=== PATIENT | male | born 1980 | race Caucasian/White ===

== ENCOUNTER 2018-07-16 00:45 | Emergency (ER) | payer OTHER ==
[~2018-07-16] VITALS: Ht 198.1 cm; Wt 99.8 kg
--- OUTSIDE RECORDS SUMMARY | ~2018-07-16 | XMS | Clinical Summary ---
Demographics + + + | Address | [address] | | | [place] [address] | + + + | Home Phone | | + + + | Preferred Language | Unknown | + + + | Marital Status | Single | + + + | Mormonism Affiliation | Unknown | + + + | Race | White | + + + | Ethnic Group | Not or | + + + Author + + + | Author | [facility] | + + + | Organization | [facility] | + + + | Address | Unknown | + + + | Phone | Unavailable | + + + Support + + +---------+ + | Name | Relationship | Address | Phone | + + +---------+ + | SCAR SPAULDING | ECON | Unknown | | + + +---------+ + Care Team Providers + +------+ + | Care Energy Engineer Name | Role | Phone | + +------+ + | Diana Rush MD | PP | | + +------+ + Source Comments LEO is fully live on both [facility] and [facility]Patient.[facility] Allergies No Known Allergies Current Medications + + +--------+---------+------+------+-------+ | Prescription | Sig. | Disp. | Refills | Star | End | Statu | | | | | | t | Date | s | | | | | | Date | | | + + +--------+---------+------+------+-------+ | butenafine 1 % | Apply to affected | 30 g | 0 | 08/1 | 08/3 | Expir | | topical | area two times daily | | | 6/20 | 0/20 | ed | | creamIndications: | for 14 days. | | | 18 | 18 | | | fungal infection of | Indications: fungal | | | | | | | skin | infection | | | | | | + + +--------+---------+------+------+-------+ Active Problems + + + | Problem | Noted Date | + + + | Sprain of lumbar region | 10/31/2008 | + + + Encounters +--------+ + + + + | Date | Type | Specialty | Care Team | Description | +--------+ + + + + | 06/16/ | Office | | Diaan Rush MD | Well adult on | | 2018 | Visit | | | routine health check | | | | | | (Primary Dx); Tinea | | | | | | corporis; Family | | | | | | history of | | | | | | hyperlipidemia | +--------+ + + + + | 06/16/ | MyChart | | Diana Rush MD | RE: Therapy reccs | | 2017 | Encounter | | | | +--------+ + + + + | 06/16/ | MyChart | | Diana Rush MD | Question regarding | | 2017 | Encounter | | | LIPID SET | +--------+ + + + + from Last 3 Months Immunizations +------+ + + | Name | Dates Previously Given | Next Due | +------+ + + | Tdap | 04/01/2010 | | +------+ + + Family History + + +------+ + | Medical History | Relation | Name | Comments | + + +------+ + | Additional Family | Father | | Sleep Apnea | | History | | | | + + +------+ + | Heart Disease | Father | | Mitral valve prolapse | + + +------+ + | Diabetes | Paternal | | | | | Grandfath | | | | | er | | | + + +------+ + | Stroke | Paternal | | | | | Grandmoth | | | | | er | | | + + +------+ + + +------+--------+ + | Relation | Name | Status | Comments | + +------+--------+ + | Father | | Alive | | + +------+--------+ + | Mother | | Alive | | + +------+--------+ + | Paternal Grandfather | | | | + +------+--------+ + | Paternal Grandmother | | | | + +------+--------+ + Social History + +-------+ +--------+------+ | Tobacco Use | Types | Packs/Day | Years | Date | | | | | Used | | + +-------+ +--------+------+ | Never Smoker | | | | | + +-------+ +--------+------+ + + +---------+ + | Alcohol Use | Drinks/We | oz/Week | Comments | | | ek | | | + + +---------+ + | Yes | 8 | 4.8 | | | | Standard | | | | | drinks or | | | | | | | | | | equivalen | | | | | t | | | + + +---------+ + + + + | Sex Assigned at | Date Recorded | | | | + + + | Not on file | | + + + Last Filed Vital Signs + + + + | Vital Sign | Reading | Time Taken | + + + + | Blood Pressure | 132/78 | 06/16/2018 8:14 AM PDT | + + + + | Pulse | 72 | 06/16/2018 8:14 AM PDT | + + + + | Temperature | 36.2 C (97.2 F) | 06/10/2017 9:30 AM PDT | + + + + | Respiratory Rate | - | - | + + + + | Oxygen Saturation | - | - | + + + + | Inhaled Oxygen | - | - | | Concentration | | | + + + + | Weight | 102.5 kg (226 lb) | 06/16/2018 8:14 AM PDT | + + + + | Height | 198.1 cm (6' 6") | 06/16/2018 8:14 AM PDT | + + + + | Body Mass Index | 26.12 | 06/16/2018 8:14 AM PDT | + + + + Plan of Treatment + + + + + | Health Maintenance | Due Date | Last Done | Comments | + + + + + | INFLUENZA VACCINE | | | | | (FLU SHOT) | 8 | | | + + + + + | SUBSTANCE ABUSE | | 06/16/2018, 06/02/2016 | | | SCREENING | 9 | | | + + + + + | Diphtheria,Tetanus,P | | 04/01/2010 | | | ertussis | 0 | | | | (DTaP/Tdap/Td) (2 - | | | | | Td) | | | | + + + + + | CHOLESTEROL | | 06/16/2018, 06/10/2017, | | | SCREENING | 3 | 06/02/2016, Additional history | | | | | exists | | + + + + + | HIV SCREEN | Completed | 06/10/2017, 05/12/2012 | | + + + + + Procedures + +--------+ + + + | Procedure Name | Priori | Date/Time | Associated Diagnosis | Comments | | | ty | | | | + +--------+ + + + | LIPID SET (TRIG, T | Routin | 06/16/2018 | Family history of | Results for this | | CHOL, HDL, CALC LDL) | e | 8:46 AM | hyperlipidemia | procedure are in the | | | | PDT | | results section. | + +--------+ + + + from Last 3 Months Results LIPID SET (TRIG, T CHOL, HDL, CALC LDL) (06/16/2018 8:46 AM) + +---------+ + + | Component | Value | Ref Range | Performed At | + +---------+ + + | CHOLESTEROL (LAB) | 194 | <200 mg/dL | [facility] | | | | | SERVICES, CORE | + +---------+ + + | TRIGLYCERIDES | 93 | <150 mg/dL | [facility] | | | | | SERVICES, CORE | + +---------+ + + | HDL CHOLESTEROL | 64 | >40 mg/dL | [facility] | | | | | SERVICES, CORE | + +---------+ + + | HDL CMNT | No Hemo | | [facility] | | | | | SERVICES, CORE | + +---------+ + + | LDL CHOLESTEROL, | 111 (H) | <100 mg/dL | [facility] | | CALCULATED | | | SERVICES, CORE | + +---------+ + + | VLDL CHOLESTEROL, | 19 | <31 mg/dL | [facility] | | CALCULATED | | | SERVICES, CORE | + +---------+ + + | NON-HDL CHOLESTEROL | 130 (H) | <130 mg/dL | [facility] | | | | | SERVICES, CORE | + +---------+ + + + + | Specimen | + + | Blood - Blood | + + + + + | Narrative | Performed At | + + + | Cholesterol Reference Range: Desirable: <200 | [facility] | | mg/dL Borderline High: 200 - 239 mg/dL | LAB[facility]ORY | | High: >=240 mg/dL | SERVICES, CORE | | LDL Cholesterol Reference Range: | | | Optimal: <100 mg/dL Near | | | Optimal: 100-129 mg/dL Borderline High: 130-159 mg/dL | | | High: 160-189 mg/dL | | | Very High: >=190 mg/dL non-HDL Cholesterol | | | Reference Range: Optimal: <130 mg/dL | | | Near Optimal: 130-159 mg/dL Borderline | | | High: 160-189 mg/dL High: | | | 190-209 mg/dL Very High: >=210 mg/dL | | | Triglyceride Reference Range: Normal: <150 | | | mg/dL Borderline High: 150-199 mg/dL | | | High: 200-499 mg/dL Very | | | High: >=500 mg/dL HDL Reference Range: High | | | Risk: <40 mg/dL Desirable: >=60 mg/dL | | + + + + + + + + | Performing | Address | City/State/Zipcode | Phone Number | | Organization | | | | + + + + + | [facility] | [address] | [place] [address] | | | SERVICES, [place] | [address] | | | + + + + + from Last 3 Months Insurance + +--------+ +------+-------+---------+ | Payer | Benefi | Subscriber | Type | Phone | Address | | | t Plan | ID | | | | | | / | | | | | | | Group | | | | | + +--------+ +------+-------+---------+ | [facility] | UNITED | xxxxxxxxx | PPO | | | | | | | | | | | | HEALTH | | | | | | | CARE | | | | | + +--------+ +------+-------+---------+ + +--------+ +--------+ + + | Guarantor Name | Accoun | Relation to | Date | Phone | Billing Address | | | t Type | Patient | of | | | | | | | | | | + +--------+ +--------+ + + | ZHEN SPAULDING | Person | Self | [birth year] | Home: | [address] | | [place] | riddhi/Steven | | 1980 | [phone] [address] [place], | | | [place] | | | [phone] | [place] [address] | + +--------+ +--------+ + +
--- OUTSIDE RECORDS SUMMARY | ~2018-07-16 | XMS | Clinical Summary ---
Demographics + + + | Address | [address] | | | [place] [address] | + + + | Home Phone | | + + + | Preferred Language | Unknown | + + + | Marital Status | Single | + + + | Church Affiliation | Unknown | + + + | Race | White | + + + | Ethnic Group | Not or | + + + Author + + + | Author | [facility] | + + + [...] Team Providers + +------+ + | Care Interchange Agent Name | Role | Phone | + +------+ + | Diana Rush MD | PP | | + +------+ + Source Comments LEO is fully live on both [facility] Ambulatory and [facility] InPatient.[facility] Allergies No Known Allergies Current Medications + [...] + | 06/16/ | Office | | Diana Rush MD | Well adult on | [...] (LAB) | 194 | <200 mg/dL | [facility] | | | | | SERVICES, [...] + + + | [facility] | [address] | [place] [address] | | | SERVICES, [place] | [address] [...] | | | + +--------+ +------+-------+---------+ | [facility] | UNITED | [phone] | PPO | [...] | [address] [place], | | | [place] | | | [phone] | [place] [address] | + +--------+ +--------+ + +
--- OUTSIDE RECORDS SUMMARY | ~2018-07-16 | XMS | Clinical Summary ---
Demographics + + + | Address | [address] | | | [place] [address] | + + + | Home Phone | | + + + | Preferred Language | Unknown | + + + | Marital Status | Single | + + + | Sikh Affiliation | Unknown | + + + | Race | Unknown | + + + | Ethnic Group | Unknown | + + + Author + + + | Author | [facility] | | | and [place] | + + + | Organization | [facility] | | | and [place] | + + + | Address | Unknown | + + + | Phone | Unavailable | + + + Support + + +---------+ + | Name | Relationship | Address | Phone | + + +---------+ + | Gino Zazueta | ECON | Unknown | | + + +---------+ + Care Team Providers + +------+ + | Care Meal Packer Name | Role | Phone | + +------+ + PP | Unavailable | + +------+ + Allergies Not on File Current Medications Not on file Active Problems Not on file Social History + +-------+ +--------+------+ | Tobacco Use | Types | Packs/Day | Years | Date | | | | | Used | | + +-------+ +--------+------+ | Never Assessed | | | | | + +-------+ +--------+------+ + + + | Sex Assigned at | Date Recorded | | | | + + + | Not on file | | + + + Plan of Treatment + + + + + | Health Maintenance | Due Date | Last Done | Comments | + + + + + | Vaccine: | | | | | Dtap/Tdap/Td (1 - | 1 | | | | Tdap) | | | | + + + + + | Vaccine: Influenza | | | | | (#1) | 8 | | | + + + + + Results Not on filefrom Last 3 Months"
--- OUTSIDE RECORDS SUMMARY | ~2018-07-16 | XMS | Encounter Summary ---
Demographics + + + | Address | [address] | | | [place] [address] | + + + | Home Phone | | + + + | Preferred Language | Unknown | + + + | Marital Status | Single | + + + | Quaker Affiliation | Unknown | + + + | Race | White | + + + | Ethnic Group | Not or | + + + Author + + + | Author | [facility] | + + + | Organization | [facility] | + + + | Address | Unknown | + + + | Phone | Unavailable | + + + Support + + +---------+ + | Name | Relationship | Address | Phone | + + +---------+ + | SCAR SPAULDING | ECON | Unknown | | + + +---------+ + Care Team Providers + +------+ + | Care Disciplinary Hearing Officer Name | Role | Phone | + +------+ + | Diana Rush MD | PCP | | + +------+ + Encounter Details +--------+ + + + + | Date | Type | Department | Care Team | Description | +--------+ + + + + | 06/16/ | MyChart | Family Medicine at | Diana Rush MD | Question regarding | | 2018 | Encounter | [facility] | [address] | LIPID SET | | | | [address] | [place], [place] | | | | | Mailcode: CH9F | [address] | | | | | [facility] | [phone] | | | | | and Healing, | | | | | | Floor [place], [place] | | | | | | [address] | | | | | | [phone] | | | +--------+ + + + + Social History + +-------+ +--------+------+ | [...] on file | | + + + as of this encounter Plan of Treatment Not on fileas of this encounter Visit Diagnoses Not on filein this encounter"
--- OUTSIDE RECORDS SUMMARY | ~2018-07-16 | XMS | Encounter Summary ---
Demographics + + + | Address | [address] | | | [place] [address] | + + + | Home Phone | | + + + | Preferred Language | Unknown | + + + | Marital Status | Single | + + + | Latter-Day Affiliation | Unknown | + + + | Race | White | + + + | Ethnic Group | Not or | + + + Author + + + | Author | [facility] | + + + | Organization | [facility] | + + + | Address | Unknown | + + + | Phone | Unavailable | + + + Support + + +---------+ + | Name | Relationship | Address | Phone | + + +---------+ + | SCAR SPAULDING | ECON | Unknown | | + + +---------+ + Care Team Providers + +------+ + | Care Mending Carrier Name | Role | Phone | + [...] regarding | | 2018 | Encounter | [facility] [place] [facility] | [address] | LIPID SET | | | | [address] | [place], [place] | | | | | Mailcode: CH9F | [phone] | | | | | [facility] | [phone] | | | | | and Healing, | | | | | | Floor [place], [place] | | | | | | [address] | | | | | | [phone] | | | +--------+ + + + [...]
--- OUTSIDE RECORDS SUMMARY | ~2018-07-16 | XMS | Encounter Summary ---
Demographics + + + | Address | [address] | | | [place] [address] | + + + | Home Phone | | + + + | Preferred Language | Unknown | + + + | Marital Status | Single | + + + | Jainism Affiliation | Unknown | + + + | Race | White | + + + | Ethnic Group | Not or | + + + Author + + + | Author | [facility] | + + + | Organization | [facility] | + + + | Address | Unknown | + + + | Phone | Unavailable | + + + Support + + +---------+ + | Name | Relationship | Address | Phone | + + +---------+ + | SCAR SPAULDING | ECON | Unknown | | + + +---------+ + Care Team Providers + +------+ + | Care Mobile Application Engineer Name | Role | Phone | + +------+ + | Diana Ruhs MD | PCP | | + +------+ + Encounter Details +--------+ + + + + | Date | Type | Department | Care Team | Description | +--------+ + + + + | 06/16/ | MyChart | Family Medicine at | Diana Rush MD | RE: Therapy reccs | | 2018 | Encounter | [facility] | [address] | | | | | [address] | [place], [place] | | | | | Mailcode: CH9F | [address] | | | | | [facility] | [phone] | | | | | and | | | | | | Floor [place], [place] | | | | | | [address] | | | | | | [phone] | | | +--------+ + + + [...]
--- OUTSIDE RECORDS SUMMARY | ~2018-07-16 | XMS | Encounter Summary ---
Demographics + + + | Address | [address] | | | [place] [address] | + + + | Home Phone | | + + + | Preferred Language | Unknown | + + + | Marital Status | Single | + + + | Tenriism Affiliation | Unknown | + + + | Race | White | + + + | Ethnic Group | Not or | + + + Author + + + | Author | [facility] | + + + | Organization | [facility] | + + + | Address | Unknown | + + + | Phone | Unavailable | + + + Support + + +---------+ + | Name | Relationship | Address | Phone | + + +---------+ + | SCAR SPAULDING | ECON | Unknown | | + + +---------+ + Care Team Providers + +------+ + | Care Firer Powerhouse Name | Role | Phone | + [...] reccs | | 2018 | Encounter | [facility] | [address] | | | | | [address] | [place], [place] | | | | | Mailcode: CH9F | [phone] | | | | | [facility] | [phone] | | | | | and | | | | | | Floor [place], [place] | | | | | | [address] | | | | | | [phone] | | | +--------+ + + + [...]
--- OUTSIDE RECORDS SUMMARY | ~2018-07-16 | XMS | Encounter Summary ---
Demographics + + + | Address | [address] | | | [place] [address] | + + + | Home Phone | | + + + | Preferred Language | Unknown | + + + | Marital Status | Single | + + + | Nondenominational Affiliation | Unknown | + + + | Race | White | + + + | Ethnic Group | Not or | + + + Author + + + | Author | [facility] | + + + | Organization | [facility] | + + + | Address | Unknown | + + + | Phone | Unavailable | + + + Support + + +---------+ + | Name | Relationship | Address | Phone | + + +---------+ + | SCAR ZAZUETA | ECON | Unknown | | + + +---------+ + Care Team Providers + +------+ + | Care Clamshell Engineer Name | Role | Phone | + +------+ + | Diana Rush MD | PCP | | + +------+ + Reason for Visit + + + | Reason | Comments | + + + | Annual health | | | maintenance | | | examination | | + + + Encounter Details +--------+---------+ + + + | Date | Type | Department | Care Team | Description | +--------+---------+ + + + | 06/16/ | Office | Family Medicine at | Diana Rsuh MD | Well adult on | | 2018 | Visit | [facility] | [address] | routine health check | | | | [address] | [facility] [place] | (Primary Dx); Tinea | | | | Mailcode: CH9F | [phone] | corporis; Family | | | | [facility] | [phone] | history of | | | | and Healing, | | hyperlipidemia | | | | Floor [place], [place] | | | | | | [address] | | | | | | [phone] | | | +--------+---------+ + + + Social History + +-------+ [...] + + + as of this encounter Last Filed Vital Signs + + + + | Vital Sign | Reading | Time Taken | + + + + | Blood Pressure | 132/78 | 06/16/2018 8:14 AM PDT | + + + + | Pulse | 72 | 06/16/2018 8:14 AM PDT | + + + + | Temperature | - | - | + + + + | Respiratory [...] AM PDT | + + + + in this encounter Progress Notes Bertha Chinchilla MA - 06/16/2018 8:00 AM PDTPatient is here today for a blood draw. Blood draw done per physician's order Site: Right Arm Time: 8:45 Patient tolerated procedure well. Venipuncture performed without difficulty Diana Rush MD - 06/16/2018 8:00 AM PDTSUBJECTIVE: 37 y.o. male for annual routine checkup . I have fully reviewed the past medical, surgical, social and family history and updated the Histories section of [employer]. Concerns today include: - Rash on chest; still gets spots sometimes. Tried an antifungal that did make it go away f or a day or two. - Continues to have some sleep issues. "I already know what you're going to tell me." Wakes up about 4-5 times per night. Has used melatonin on occasion and that helps. 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 Thinking about getting established wi th a counselor. - Exercises about 2-3 days per week; plays basketball on Mondays. Goes for walks about 30 m in daily. Meds: None Allergies: Patient has no known allergies. ROS: No TIA's or unusual headaches, no dysphagia. No prolonged cough. No dyspnea or chest pain on exertion. No abdominal pain, change in bowel habits, black or bloody stools. No ur inary tract symptoms. OBJECTIVE: VITAL SIGNS: BP 132/78 | Pulse 72 | Ht 1.981 m (6' 6") | Wt 102.5 kg (226 lb) | BMI 26.12 kg/(m^2) HEAD AND NECK: Ears normal. Throat, oral cavity and tongue normal. Neck supple. No adeno anna marie or masses in the neck or supraclavicular regions. No carotid bruits. No thyromegaly. NEURO: Cranial nerves and fundi are normal. Neck supple. DTR's normal and symmetric. CHEST: Clear, good air entry, no wheezes, rhonci or rales. HEART: S1 and S2 normal, no murmurs, clicks, gallops or rubs. Regular rate and rhythm. N o edema or JVD. ABDOMEN: Soft without tenderness, guarding, mass or organomegaly. No CVA tenderness or ing uinal adenopathy. EXTREMITIES: Extremities, reflexes and peripheral pulses are normal. SKIN: No rashes or suspicious skin lesions noted. ASSESSMENT: Healthy adult male. See visit diagnoses in [facility]. PLAN: See orders Trial of 2- weeks course of butenafine Encouraged physical activity & sleep hygiene, work with counselor on stress management. Yearly lipid screen in this encounter Plan of Treatment + +--------+ + + | Name | Priori | Associated Diagnoses | Order Schedule | | | ty | | | + +--------+ + + | ROUTINE VENIPUNCTURE, VENOUS-BACK | Routin | Family history of | Ordered: 06/16/2018 | | OFFICE | e | hyperlipidemia | | + +--------+ + + as of this encounter Procedures + +--------+ + + + | [...] section. | + +--------+ + + + in this encounter Results LIPID SET (TRIG, T CHOL, HDL, CALC LDL) (06/16/2018 8:46 AM) + +---------+ + + | Component | Value | Ref Range | Performed At | + +---------+ + + | CHOLESTEROL (LAB) | 194 | <200 mg/dL | [facility] | | | | | SERVICES, [...] HDL CMNT | No Hemo | | [facility] | | | | | SERVICES, CORE | + +---------+ + + | LDL CHOLESTEROL, | 111 (H) | <100 mg/dL | [facility] | | CALCULATED | | | SERVICES, CORE | + +---------+ + + | VLDL CHOLESTEROL, | 19 | <31 mg/dL | [facility] | | CALCULATED | | | VIVIAN CORE | + +---------+ + + | [...] | + + + + + | [facility] | [address] | [place] [address] | | | VIVIAN, CORE | [address] | | | + + + + + in this encounter Visit Diagnoses + + | Diagnosis | + + | Well adult on routine health check - Primary | + + | Routine general medical examination at a health care facility | + + | Tinea corporis | + + | Dermatophytosis of the body | + + | Family history of hyperlipidemia | + + | Family history of other endocrine and metabolic diseases | + +
--- OUTSIDE RECORDS SUMMARY | ~2018-07-16 | XMS | Encounter Summary ---
Demographics + + + | Address | [address] | | | [place] [address] | + + + | Home Phone | | + + + | Preferred Language | Unknown | + + + | Marital Status | Single | + + + | Congregational Affiliation | Unknown | + + + | Race | White | + + + | Ethnic Group | Not or | + + + Author + + + | Author | [facility] | + + + | Organization | [facility] | + + + | Address | Unknown | + + + | Phone | Unavailable | + + + Support + + +---------+ + | Name | Relationship | Address | Phone | + + +---------+ + | SCAR ZAZUETA | ECON | Unknown | | + + +---------+ + Care Team Providers + +------+ + | Care Radar Signal Processing Engineer Name | Role | Phone | [...] Office | Family Medicine at | Diana Rush MD | Well adult on | | 2018 | Visit | [facility] | [address] | routine health check | | | | [address] | [facility] [place] | (Primary Dx); Tinea | | | | Mailcode: CH9F | [id number] | corporis; Family | | | | [facility] | [phone] | history of | | | | and Healing, | | hyperlipidemia | | | | Floor [place], [place] | | | | | | [address] | | | | | | [phone] | | | +--------+---------+ + + + [...] history and updated the Histories section of studentSN. Concerns today include: - Rash on chest; [...] Healthy adult male. See visit diagnoses in [facility]. PLAN: See orders Trial of 2- [...] (LAB) | 194 | <200 mg/dL | [facility] | | | | | SERVICES, [...] HDL CMNT | No Hemo | | [facility] | | | | | SERVICES, [...] | + + + + + | [facility] | [address] | [place] [address] | | | [place]IVIAN, CORE | PARK [...]
--- OUTSIDE RECORDS SUMMARY | ~2018-07-16 | XMS | Clinical Summary ---
Demographics + + + | Address | [address] | | | [place] [address] | + + + | Home Phone | | + + + | Preferred Language | Unknown | + + + | Marital Status | Single | + + + | Mormon Affiliation | Unknown | + + + | Race | Unknown | + + + | Ethnic Group | Unknown | + + + Author + + + | Author | [facility] | | | and [place] | + + + | Organization | [facility] | | | and [place] | + + + | Address | Unknown | + + + | Phone | Unavailable | + + + Support + + +---------+ + | Name | Relationship | Address | Phone | + + +---------+ + | Gino Zazueta | ECON | Unknown | | + + +---------+ + Care Team Providers + +------+ + | Care Mr Teacher Name | Role | Phone | + [...]
[~2018-07-16 00:45] MED LIST: CLINDAMYCIN HC300 MG PO; NORCO 5-325 TA1 EACH PO
--- OUTSIDE RECORDS SUMMARY | 2018-07-16 00:48 | XMS ---
PreManage Notification: ZHEN SPAULDING Security Protective Signal Repairer Events No recent Security Events currently on file CRITERIA MET - [facility] - 2 Visits in 30 Days CARE PROVIDERS There are no care providers on record at this time. Daniel has no Care Guidelines for this patient. Андрей VISIT COUNT (12 MO.) [address] [facility] [address] [facility] TOTAL 3 NOTE: Visits indicate total known visits. ED[facility] VISIT TRACKING (12 MO.) 07/16/2018 00:45 [facility] [place] TYPE: Emergency COMPLAINT: - HEAD INJURY 06/16/2018 22:34 [facility] [place] TYPE: Emergency COMPLAINT: - L SIDED DENTAL PAIN DIAGNOSES: - Other specified disorders of teeth and supporting structures 06/16/2018 00:00 [facility] [place] TYPE: Emergency COMPLAINT: - L SIDE DENTAL PAIN INPATIENT VISIT TRACKING (12 MO.) No inpatient visits to display in this time frame [email or web address]
== END 2018-07-16 01:25 | disposition home or self-care (01) ==
LOC: ED 00:45
PROC: 0HQ0XZZ Repair Scalp Skin, External Approach (ICD-10-PCS; principal; 2018-07-16)
DX: S01.01XA Laceration without foreign body of scalp, initial encounter (principal); W18.30XA Fall on same level, unspecified, initial encounter
CPT/HCPCS: 12002; 99283